=== PATIENT | male | born 1995 | race Caucasian/White ===

== ENCOUNTER 2018-10-30 00:50 | Emergency (ER) | payer BC, OTHER ==
--- NOTE | 2018-10-30 01:45 | EDPHYS ---
Physician Documentation [facility] Name: Neil Guerra Age: 23 yrs Sex: Male : 1995 Arrival Date: 10/30/2018 Time: 00:54 Bed 18 Private MD: ED Physician Ye Chi HPI: 10/30 01:08 This 23 yrs old Male presents to ER via Ambulatory with complaints of Sore kb Throat. 01:08 The patient presents with sore throat. The patient describes throat pain as constant. kb Onset: The symptoms/episode began/occurred 3 day(s) ago. Severity of symptoms: At their worst the symptoms were moderate, in the emergency department the symptoms are unchanged. Modifying factors: The symptoms are alleviated by nothing, the symptoms are aggravated by swallowing, Patient's oral intake status: good. Associated signs and symptoms: Pertinent positives: fever, Sore throat Pertinent negatives chest pain, chills, cough, diarrhea, dysphagia, earache, flu-like symptoms, headache, nausea, rhinorrhea, shortness of breath, vomiting. The patient has not experienced similar symptoms in the past. The patient has not recently seen a physician. Historical: - Allergies: 00:55 No Known Allergies; jb4 - Home Meds: 00:55 None [Active]; jb4 - PMHx: 00:55 None; jb4 - PSHx: 00:55 None; jb4 - Immunization history:: Adult Immunizations up to date, Flu vaccine is up to date. - Social history:: Smoking status: Patient/guardian denies using tobacco, never smoked, Patient/guardian denies using alcohol. - Ebola Screening: : No symptoms or risks identified at this time. ROS: 01:07 Cardiovascular: Negative for chest pain, palpitations, and edema, Respiratory: Negative kb for shortness of breath, cough, wheezing, and pleuritic chest pain, Abdomen/GI: Negative for abdominal pain, nausea, vomiting, diarrhea, and constipation, MS/Extremity: Negative for injury and deformity, Skin: Negative for injury, rash, and discoloration, Neuro: Negative for headache, weakness, numbness, tingling, and seizure. 01:07 Constitutional: Positive for fever, Negative for body aches, chills, fatigue, malaise, poor PO intake, weight loss. 01:07 ENT: Positive for sore throat. Exam: 01:07 Constitutional: This is a well developed, well nourished patient who is awake, alert, kb and in no acute distress. Head/Face: Normocephalic, atraumatic. Chest/axilla: Normal chest wall appearance and motion. Nontender with no deformity. No lesions are appreciated. Cardiovascular: Regular rate and rhythm with a normal S1 and S2. No gallops, murmurs, or rubs. Normal PMI, no JVD. No pulse deficits. Respiratory: Lungs have equal breath sounds bilaterally, clear to auscultation and percussion. No rales, rhonchi or wheezes noted. No increased work of breathing, no retractions or nasal flaring. Abdomen/GI: Soft, non-tender, with normal bowel sounds. No distension or tympany. No guarding or rebound. No evidence of tenderness throughout. Skin: Warm, dry with normal turgor. Normal color with no rashes, no lesions, and no evidence of cellulitis. MS/ Extremity: Pulses equal, no cyanosis. Neurovascular intact. Full, normal range of motion. Neuro: Awake and alert, GCS 15, oriented to person, place, time, and situation. Cranial nerves II-XII grossly intact. Motor strength 5/5 in all extremities. Sensory grossly intact. Cerebellar exam normal. Normal gait. 01:07 ENT: Posterior pharynx: Airway: normal, no evidence of obstruction, Tonsils: bilaterally enlarged, with erythema, with exudate, Uvula: normal, midline, swelling, that is moderate, erythema, that is moderate, exudate, that is mild. Vital Signs: 00:55 BP 136 / 63; Pulse 68; Resp 16; Temp 100.7(O); Pulse Ox 94% on R/A; Weight 140.61 kg jb4 (R); Height 5 ft. 8 in. (172.72 cm) (R); Pain 6/10; 01:45 BP 119 / 83; Pulse 118; Resp 16; Temp 100.8(O); Pulse Ox 100% on R/A; jb4 00:55 Body Mass Index 47.13 (140.61 kg, 172.72 cm) jb4 01:45 Provider notified about VS, see [facility] for orders. 4 MDM: 00:56 Patient medically screened. kb 01:07 Data reviewed: vital signs, nurses notes. Data interpreted: Pulse oximetry: on room air kb is 100 %. Interpretation: normal. 01:44 Counseling: I had a detailed discussion with the patient and/or guardian regarding: the kb historical points, exam findings, and any diagnostic results supporting the discharge/admit diagnosis, lab results, the need for outpatient follow up, a family practitioner, to return to the emergency department if symptoms worsen or persist or if there are any questions or concerns that arise at home. 10/30 00:58 Order name: Strep kb 10/30 00:58 Order name: Group A Streptococcus Rapid Sc; Complete Time: 01:40 EDMS 10/30 01:39 Order name: Throat Culture EDMS Administered Medications: 02:00 Drug: Ibuprofen 600 mg Route: PO; jb4 02:09 Follow up: Response: No adverse reaction; Medication administered at discharge. jb4 Disposition: 10/30/18 01:45 Discharged to Home. Impression: Acute pharyngitis. - Condition is Stable. - Discharge Instructions: Pharyngitis, [id number], Viral Respiratory Infection, [id number]. - Medication Reconciliation Form, Thank You Letter, Antibiotic Education, Prescription Opioid Use form. - Follow up: Emergency Department; When: As needed; Reason: Worsening of condition. Follow up: Private Physician; When: 2 - 3 days; Reason: Recheck today's complaints, Continuance of care, Re-evaluation by your physician. Addendum: 11/01/2018 19:38 Co-signature as Attending Physician, Ye Chi MD. g s Signatures: Dispatcher [employer] [facility] Rut López, JONATHAN SCHAFFER-Clinton Finney RN RN jb4 Ye Chi MD MD Corrections: (The following items were deleted from the chart) 10/30 02:10 01:45 10/30/2018 01:45 Discharged to Home. Impression: Acute pharyngitis. Condition is jb4 Stable. Forms are Medication Reconciliation Form, Thank You Letter, Antibiotic Education, Prescription Opioid Use. Follow up: Emergency Department; When: As needed; Reason: Worsening of condition. Follow up: Private Physician; When: 2 - 3 days; Reason: Recheck today's complaints, Continuance of care, Re-evaluation by your physician. kb
--- NOTE | 2018-10-30 01:45 | ER ---
Nurse's Notes [facility] Name: Neil Guerra Age: 23 yrs Sex: Male : 1995 Arrival Date: 10/30/2018 Time: 00:54 Bed 18 Private MD: Diagnosis: Acute pharyngitis Presentation: 10/30 00:55 Presenting complaint: Patient states: i have had sore throat for the past 3 days, and jb4 fever on and off. 00:55 Transition of care: patient was not received from another setting of care. Onset of jb4 symptoms was October 27, 2018. Risk Assessment: Do you want to hurt yourself or someone else? Patient reports no desire to harm self or others. Initial Sepsis Screen: Does the patient meet any 2 criteria? No. Patient's initial sepsis screen is negative. Does the patient have a suspected source of infection? No. Patient's initial sepsis screen is negative. Care prior to arrival: None. 00:55 Method Of Arrival: Ambulatory jb4 00:55 Acuity: TAMEKA 4 jb4 Triage Assessment: 00:55 General: Appears in no apparent distress. comfortable, Behavior is calm, cooperative, jb4 appropriate for age. Pain: Complains of pain in sore throat. Pain does not radiate. Pain currently is 6 out of 10 on a pain scale. Quality of pain is described as. EENT: Throat is clear is reddened has patchy exudate with gag reflex present. Neuro: Level of Consciousness is awake, alert, obeys commands, Oriented to person, place, time, situation. Cardiovascular: Patient's skin is warm and dry. Respiratory: Airway is patent Respiratory effort is even, unlabored, Respiratory pattern is regular, symmetrical. GI: No signs and/or symptoms were reported involving the gastrointestinal system. : No signs and/or symptoms were reported regarding the genitourinary system. Derm: Skin is intact, Skin is pink, warm \T\ dry. Musculoskeletal: Circulation, motion, and sensation intact. Range of motion: intact in all extremities. Historical: - Allergies: 00:55 No Known Allergies; jb4 - Home Meds: 00:55 None [Active]; jb4 - PMHx: 00:55 None; jb4 - PSHx: 00:55 None; jb4 - Immunization history:: Adult Immunizations up to date, Flu vaccine is up to date. - Social history:: Smoking status: Patient/guardian denies using tobacco, never smoked, Patient/guardian denies using alcohol. - Ebola Screening: : No symptoms or risks identified at this time. Screenin:55 Abuse screen: Denies threats or abuse. Nutritional screening: No deficits noted. jb4 Tuberculosis screening: No symptoms or risk factors identified. Fall Risk None identified. Assessment: 00:55 General: see triage assessment. Respiratory: Airway is patent Respiratory effort is jb4 even, unlabored, Respiratory pattern is regular, symmetrical. 02:00 Reassessment: Patient appears in no apparent distress at this time. Patient and/or jb4 family updated on plan of care and expected duration. Pain level reassessed. Patient is alert, oriented x 3, equal unlabored respirations, skin warm/dry/pink. Vital Signs: 00:55 BP 136 / 63; Pulse 68; Resp 16; Temp 100.7(O); Pulse Ox 94% on R/A; Weight 140.61 kg jb4 (R); Height 5 ft. 8 in. (172.72 cm) (R); Pain 6/10; 01:45 BP 119 / 83; Pulse 118; Resp 16; Temp 100.8(O); Pulse Ox 100% on R/A; jb4 00:55 Body Mass Index 47.13 (140.61 kg, 172.72 cm) jb4 01:45 Provider notified about VS, see [facility] for orders. jb4 ED Course: 00:54 Patient arrived in ED. es 00:55 Arm band placed on left wrist. jb4 00:55 Patient has correct armband on for positive identification. Bed in low position. Call jb4 light in reach. Side rails up X 1. Pulse ox on. NIBP on. 00:55 Strep swab sent to lab. jb4 00:56 Rut López FNP-C is [facility]. kb 00:56 Ye Chi MD is Attending Physician. kb 01:05 Clinton Driver, CHAS is Primary Nurse. jb4 01:06 Triage completed. jb4 02:08 No provider procedures requiring assistance completed. Patient did not have IV access jb4 during this emergency room visit. Administered Medications: 02:00 Drug: Ibuprofen 600 mg Route: PO; jb4 02:09 Follow up: Response: No adverse reaction; Medication administered at discharge. jb4 Outcome: 01:45 Discharge ordered by . carmen 02:08 Discharged to home ambulatory. jb4 02:08 Condition: stable 02:08 Discharge instructions given to patient, Instructed on discharge instructions, follow up and referral plans. medication usage, Demonstrated understanding of instructions, follow-up care, medications. 02:10 Patient left the ED. jb4 Signatures: Rut López, [employer] ACCOUNT MANAGER-C [employer] ACCOUNT MANAGER-Jojo Lei James, RN RN jb4
[2018-10-30] MEDS ORDERED: IBUPROFEN 200 MG TAB PO ONE (02:08)
== END 2018-10-30 02:10 | disposition home or self-care (01) ==
LOC: ER 00:50
DX: J02.9 Acute pharyngitis, unspecified (principal)
CPT/HCPCS: 87070; 87081; 99283